=== PATIENT | male | born 1985 | race Two or more races ===

== ENCOUNTER 2018-03-20 23:16 | Emergency (ER) | payer SELFPAY ==
[~2018-03-20] VITALS: Ht 170.2 cm; Wt 80.0 kg
[2018-03-20 23:21] VITALS: BP 138/87
== END 2018-03-21 03:30 | disposition left against medical advice (07) ==
LOC: ER 23:16
DX: M54.5 Low back pain (principal); Z53.21 Procedure and treatment not carried out due to patient leaving prior to being seen by health care provider